=== PATIENT | male | born 1945 | race African-American/Black ===

== ENCOUNTER 2017-09-05 00:42 | Emergency (ER) | payer MEDICARE, OTHER ==
[2017-09-05] MEDS ORDERED: Morphine 4 MG/ML VIAL ONE (01:19)
[2017-09-05 01:29] LABS: #Basophils 0.1 thou/uL (0.0-0.2); #Lymphocytes 1.7 thou/uL (1.20-3.40); #Monocytes 0.8 thou/uL (0.11-0.59); #Neutrophils 6.8 thou/uL (1.40-6.50); %Basophils 0.6 % (0.0-1.0); %Eosinophils 0.5 % (0.0-10.0); %Lymphocytes 18.3 % (21.0-51.0); %Monocytes 8.5 % (0.0-10.0); %Neutrophils 72.1 % (42.0-75.0); Hemoglobin 15.6 g/dL (14.0-18.0); Mean Corpuscular HGB CONC 34.1 g/dL (32.0-36.0); Mean Corpuscular Hemoglobin 32.7 pg (27.0-31.0); Mean Platelet Volume 6.5 fL (7.4-10.4); Platelet Count 196 thou/uL (130-400); RBC Distribution Width 12.3 % (11.5-14.5); Red Blood Cell (RBC) Count 4.76 mill/uL (4.70-6.10); White Blood Cell (WBC) Count 9.4 thou/uL (4.8-10.8)
[2017-09-05 01:40] LABS: Prothrombin Time 13.7 SEC (12.0-14.7)
[2017-09-05 01:49] LABS: ALT (SGPT) 21 U/L (8-55); AST (SGOT) 44 U/L (5-34); Albumin 3.9 g/dL (3.4-4.8); Alkaline Phosphatase 100 U/L (40-150); Anion Gap 14 mmol/L (10-20); BUN (Urea Nitrogen) 7 mg/dL (8.4-25.7); Bilirubin, Total 0.7 mg/dL (0.2-1.2); Calc. Creatinine Clearance 0 mL/min (70-130); Carbon Dioxide 22 mmol/L (23-31); Chloride 103 mmol/L (98-107); Estimated GFR-MDRD 84; Globulin 3.5 g/dL (2.4-3.5); Glucose 132 mg/dL (80-115); Potassium 4.6 mmol/L (3.5-5.1); Protein, Total 7.4 g/dL (5.8-8.1); Sodium 134 mmol/L (136-145)
[2017-09-05 02:16] LABS: Bilirubin Negative (Negative); Blood, Urine Negative (Negative); Clarity CLEAR (Clear); Glucose, Urine (Dipstick) Negative (Negative); Leukocyte Negative (Negative); Nitrite Negative (Negative); Protein, Urine (Dipstick) Negative (Neg-Trace); Specific Gravity, Urine 1.023 (1.002-1.036); pH, Urine 5.5 (5.0-9.0)
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
[2017-09-05] MEDS ORDERED: ISOVUE-370 76%-LOCM 1 ML ONE (15:28)
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
== END 2017-09-05 05:50 | disposition home or self-care (01) ==
LOC: ERS 00:42
DX: S40.012A Contusion of left shoulder, initial encounter (principal); S20.229A Contusion of unspecified back wall of thorax, initial encounter; I10 Essential (primary) hypertension; F17.210 Nicotine dependence, cigarettes, uncomplicated; R60.0 Localized edema; Z79.899 Other long term (current) drug therapy; Z23 Encounter for immunization; Z71.6 Tobacco abuse counseling; V43.62XA Car passenger injured in collision with other type car in traffic accident, initial encounter
CPT/HCPCS: 36415; 70450; 71045; 71260; 72125; 72170; 74177; 80053; 81003; 83605; 85025; 85610; 86850; 86900; 86901; 96361; 96374; 99406; J2270

== ENCOUNTER 2018-07-10 16:55 | Emergency (ER) | payer MEDICARE, OTHER ==
[~2018-07-10 16:55] MED LIST: ISOVUE-370 76%-LOCM 1 ML ONE
[2018-07-10 18:06] LABS: #Basophils 0.1 thou/uL (0.0-0.2); #Eosinphils 0.1 thou/uL (0.0-0.7); #Lymphocytes 1.4 thou/uL (1.20-3.40); #Monocytes 0.7 thou/uL (0.11-0.59); #Neutrophils 6.7 thou/uL (1.40-6.50); %Basophils 0.7 % (0.0-1.0); %Eosinophils 1.6 % (0.0-10.0); %Lymphocytes 15.3 % (21.0-51.0); %Monocytes 8.2 % (0.0-10.0); %Neutrophils 74.2 % (42.0-75.0); Hemoglobin 17.6 g/dL (14.0-18.0); Mean Corpuscular Hemoglobin 32.5 pg (27.0-31.0); Mean Corpuscular Volume 95.5 fL (78.0-98.0); Mean Platelet Volume 7.3 fL (7.4-10.4); Platelet Count 232 thou/uL (130-400); RBC Distribution Width 12.2 % (11.5-14.5); Red Blood Cell (RBC) Count 5.43 mill/uL (4.70-6.10); White Blood Cell (WBC) Count 9.1 thou/uL (4.8-10.8)
[2018-07-10 18:24] LABS: ALT (SGPT) 12 U/L (8-55); AST (SGOT) 13 U/L (5-34); Albumin 4.1 g/dL (3.4-4.8); Alkaline Phosphatase 123 U/L (40-150); Anion Gap 15 mmol/L (10-20); BUN (Urea Nitrogen) 7 mg/dL (8.4-25.7); Bilirubin, Total 0.6 mg/dL (0.2-1.2); Calc. Creatinine Clearance 0 mL/min (70-130); Calcium 9.7 mg/dL (7.8-10.44); Carbon Dioxide 23 mmol/L (23-31); Chloride 96 mmol/L (98-107); Estimated GFR-MDRD Greater than 90; Globulin 3.6 g/dL (2.4-3.5); Glucose 99 mg/dL (83-110); Potassium 3.7 mmol/L (3.5-5.1); Protein, Total 7.7 g/dL (5.8-8.1); Sodium 130 mmol/L (136-145)
[2018-07-10] MEDS ORDERED: Lidocaine Viscous Sol 2% 15 ml UD Cup ONE (18:33)
[2018-07-10] MEDS ORDERED: Mag-Al 1200 mg/1200 mg/30 ML UDCUP ONE (18:33)
[2018-07-10 19:38] LABS: Bilirubin Negative (Negative); Blood, Urine Negative (Negative); Clarity CLEAR (Clear); Glucose, Urine (Dipstick) Negative (Negative); Leukocyte Negative (Negative); Nitrite Negative (Negative); Protein, Urine (Dipstick) Negative (Neg-Trace); Specific Gravity, Urine 1.006 (1.002-1.036); Urobilinogen 0.2 mg/dL (0.2-1.0); pH, Urine 5.5 (5.0-9.0)
--- NOTE | 2018-07-10 20:33 | CT ---
CT ABDOMEN AND PELVIS WITH CONTRAST: HISTORY: Abdominal pain for two weeks. TECHNIQUE: Contrast enhanced CT images of the abdomen and pelvis are obtained after the administration of IV con trast. Oral contrast was not given. This does decrease the sensitivity for detection of pathology. FINDINGS: The lung bases are unremarkable. No evidence of free intraperitoneal air is seen. The liver is unre markable, except for a left hepatic lobe cyst. The gallbladder is unremarkable. The spleen is unrem arkable. The adrenal glands are unremarkable. The left kidney is unremarkable. There is a small, e xophytic, enhancing lesion in the lower pole of the right kidney, diameter measuring approximately 11 mm. This may represent a right renal malignancy, including early renal cell carcinoma. This CT was compared with a previous CT from 09/05/2010. A similar lesion was present and was of similar size. Correlate with follow-up evaluation. Atherosclerotic calcification is seen in the abdominal aorta. No dilated loops of small bowel seen. A normal appendix is seen. A small amount of fecal debris is seen in the colon. The urinary bladder is thickened, concerning for possible cystitis or diffuse bl adder mass. Correlate with clinical evaluation and urological consultation. IMPRESSION: 1. Persistent lower pole right renal enhancing lesion. Malignancy cannot be excluded. 2. Bladder wall thickening. Differential diagnosis includes cystitis, although an infiltrative neop lastic process cannot be excluded. A urological consultation is recommended. POS: [facility]
== END 2018-07-10 21:08 | disposition home or self-care (01) ==
LOC: ERS 16:55
DX: K21.9 Gastro-esophageal reflux disease without esophagitis (principal); I10 Essential (primary) hypertension; F17.210 Nicotine dependence, cigarettes, uncomplicated; Z79.899 Other long term (current) drug therapy
CPT/HCPCS: 36415; 74177; 80053; 81003; 83690; 85025; 93005; Q9966

== ENCOUNTER 2021-06-26 06:03 | Inpatient (IN) | payer MEDICARE ==
[2021-06-26] MEDS ORDERED: Fentanyl 100 MCG/2 ML VIAL ONE ×2 (06:30→08:56)
[2021-06-26 07:00] LABS: ALT (SGPT) 21 U/L (8-55); AST (SGOT) 18 U/L (5-34); Albumin 3.9 g/dL (3.4-4.8); Alkaline Phosphatase 75 U/L (40-110); Anion Gap 18 mmol/L (10-20); BUN (Urea Nitrogen) 20 mg/dL (8.4-25.7); Bilirubin, Total 1.3 mg/dL (0.2-1.2); Calc. Creatinine Clearance 0 mL/min (70-130); Calcium 8.9 mg/dL (7.8-10.44); Carbon Dioxide 22 mmol/L (23-31); Chloride 96 mmol/L (98-107); Globulin 3.4 g/dL (2.4-3.5); Glucose 168 mg/dL (83-110); Lipase 59 U/L (8-78); Potassium 3.3 mmol/L (3.5-5.1); Protein, Total 7.3 g/dL (5.8-8.1); Sodium 133 mmol/L (136-145)
[2021-06-26 07:09] LABS: Blood Culture - Extra Bottle RECEIVED; Blue RECEIVED; Gold RECEIVED; Green RECEIVED; Lavender RECEIVED; SST 8.5mL RECEIVED
[2021-06-26 07:10] LABS: Mean Corpuscular Hemoglobin 32.6 pg (27.0-31.0); Mean Corpuscular Volume 98.7 fL (78.0-98.0); Mean Platelet Volume 7.3 fL (7.4-10.4); Platelet Count 190 thou/uL (130-400); RBC Distribution Width 12.1 % (11.5-14.5)
[2021-06-26 07:29] LABS: Band 7 % (5-11); Eosinophils 1 % (0-10); Lymphocytes 5 % (21-51); MDiff Complete? YES; Monocytes 3 % (0-10); Neutrophil 83 % (42-75); Platelet Morphology Comment Appears Adequate; Polychromasia SLIGHT = 2-3 cells (100X) (0-2/hpf)
[2021-06-26] MEDS ORDERED: Vancomycin 1 GM/200 ML BAG ONE (07:29)
[2021-06-26] MEDS ORDERED: Cefepime 2 GM VIAL ONE (07:29)
[2021-06-26] MEDS ORDERED: Iopamidol 370 76% 100 ML VIAL ONE (08:52)
[2021-06-26 08:58] LABS: Bilirubin Negative (Negative); Blood, Urine 1+ (Negative); Clarity Turbid (Clear); Glucose, Urine (Dipstick) 50 mg/dL (Negative); Ketone, Urine Negative (Negative); Leukocyte Negative Leu/uL (Negative); Nitrite Negative (Negative); Protein, Urine (Dipstick) 50 mg/dL (Neg-Trace); Specific Gravity, Urine 1.043 (1.002-1.036); Squamous Epithelial 0-3 HPF (0-3); pH, Urine 5.5 (5.0-9.0)
[2021-06-26 09:01] LABS: Amphetamine Not Detected (NotDetected); Barbiturates Screen Not Detected (NotDetected); Benzodiazepine Screen Not Detected (NotDetected); Cocaine Metabolite Screen Not Detected (NotDetected); Methadone Not Detected (NotDetected); Methamphetamine Not Detected (NotDetected); Opiate Screen Not Detected (NotDetected); Oxycodone Screen Not Detected (NotDetected); Phencyclidine (PCP) Not Detected (NotDetected); THC/Cannabinoid Screen Not Detected (NotDetected); Tricyclic Screen Not Detected (NotDetected)
[2021-06-26 09:06] LABS: SARS-CoV-2 NAA Rapid Test Not Detected (NotDetected)
[2021-06-26 09:07] LABS: Bacteria/HPF Rare-Few HPF (None Seen)
[2021-06-26] MEDS ORDERED: Rocuronium Bromide 10 MG/ML (10ML VIAL) ONE (09:58)
[2021-06-26] MEDS ORDERED: Calcium Chloride 1 GM/10 ML Abboject SYRINGE ONE (09:58)
[2021-06-26] MEDS ORDERED: Succinylcholine 200 MG/10 ml SYRINGE FS ONE (09:58)
[2021-06-26] MEDS ORDERED: Dexamethasone 20 MG/5 ML VIAL ONE (09:58)
[2021-06-26] MEDS ORDERED: PROPOFOL 200 MG/20 ML VIAL ONE (09:58)
[2021-06-26] MEDS ORDERED: Lidocaine 1% PF 5 ML VIAL ONE (09:58)
[2021-06-26] MEDS ORDERED: Albumin 5% 500 ML ONE (10:12)
[2021-06-26] MEDS ORDERED: Ondansetron PF 4 MG/2 ML Vial IVP PRN (10:21)
[2021-06-26] MEDS ORDERED: hydrALAZINE 20 MG/ML VIAL SLOW IVP PRN (10:21)
[2021-06-26] MEDS ORDERED: Promethazine HCl 25 MG/ML VIAL IM PRN (10:21)
[2021-06-26] MEDS ORDERED: Morphine 4 MG/ML VIAL SLOW IVP PRN ×2 (10:21)
[2021-06-26 10:31] LABS: Lactic Acid 5.5 mmol/L (0.5-2.2)
[2021-06-26] MEDS ORDERED: Potassium Chloride 20 MEQ in Premix Bag 1 BAG IVPB SCH (11:45)
[2021-06-26 12:26] LABS: INR-International Normal Ratio 1.1; PTT 27.3 sec (22.9-36.1); Prothrombin Time 13.8 sec (12.0-14.7)
[2021-06-26] MEDS ORDERED: Piperacillin/Tazobactam 3.375 GM in Sodium Chloride 0.9% 100 ML IVPB SCH ×2 (12:45→13:45)
[2021-06-26] MEDS ORDERED: Pantoprazole 80 MG in Sodium Chloride 0.9% 100 ML IVPB SCH (12:45)
[2021-06-26] MEDS ORDERED: ZOSYN IVPB PRN (12:45)
[2021-06-26] MEDS ORDERED: Propofol 1,000 MG/100 ML VIAL IV PRN (12:46)
[2021-06-26 12:55] LABS: Actual Bicarbonate (HCO3a) 21.6 mEq/L (22-28); CO2 Tension 37.5 mmHg (35.0-45.0); Calcium, Ionized (arterial) 1.16 mmol/L (1.12-1.30); Carboxyhemoglobin (COHb) 0.5 gm% (0.0-3.0); Hemoglobin (Hb) 15.9 g/dL (14.0-18.0); O2 Tension (PaO2), arterial 250.8 mmHg (> 70.0); Potassium - ABG Lab 3.38 mmol/L (3.70-5.30); Puncture Site Arterial Line; pH, Arterial 7.38 (7.35-7.45)
[2021-06-26 12:56] LABS: ALV-art Gradient -48.125 mmHg (0-20)
[2021-06-26] MEDS ORDERED: Potassium Chloride 40 MEQ in Sodium Chloride 0.9% 250 ML 250 ML IVPB SCH (13:00)
[2021-06-26] MEDS ORDERED: Magnesium 2 GM/50 ML(in water) 2 GM in Premix Bag 1 BAG IVPB SCH ×2 (13:00→14:45)
[2021-06-26 13:20] LABS: Anion Gap 14 mmol/L (10-20); BUN (Urea Nitrogen) 19 mg/dL (8.4-25.7); Calc. Creatinine Clearance 0 mL/min (70-130); Calcium 8.3 mg/dL (7.8-10.44); Carbon Dioxide 17 mmol/L (23-31); Chloride 104 mmol/L (98-107); Glucose 122 mg/dL (83-110); Magnesium 1.5 mg/dL (1.6-2.6); Phosphorus 4.3 mg/dL (2.3-4.7); Potassium 3.4 mmol/L (3.5-5.1); Sodium 132 mmol/L (136-145)
[2021-06-26] MEDS: Sodium Chloride 0.9% 1,000 ML IV SCH ×2 (13:26→21:53)
[2021-06-26 13:51] LABS: Lactic Acid 3.1 mmol/L (0.5-2.2)
[2021-06-26] MEDS ORDERED: Dextrose 5% in Water 1,000 ML IV PRN (15:40)
[2021-06-26] MEDS ORDERED: Insulin Regular 300 UNITS/3 ML VIAL SC PRN (15:40)
[2021-06-26] MEDS ORDERED: Dextrose 50% Abboject 50 ML SYRINGE SLOW IVP PRN (15:40)
[2021-06-26] MEDS ORDERED: fentaNYL Citrate/PF 2,000 MCG in Sodium Chloride 0.9% 60 ML IV PRN (16:48)
[2021-06-26] MEDS: Piperacillin/Tazobactam 3.375 GM in Sodium Chloride 0.9% 100 ML IVPB SCH (18:15)
[2021-06-26] MEDS: Famotidine/PF 20 mg/2ml Vial SLOW IVP SCH (21:54)
[2021-06-26] MEDS: Pantoprazole 80 MG, Admixture Fee 1 EACH in Sodium Chloride 0.9% 100 ML IVPB SCH (23:38)
[2021-06-27] MEDS: Piperacillin/Tazobactam 3.375 GM in Sodium Chloride 0.9% 100 ML IVPB SCH ×3 (02:08→17:30)
[2021-06-27 05:07] LABS: Lactic Acid 2.5 mmol/L (0.5-2.2)
[2021-06-27 05:08] LABS: Anion Gap 13 mmol/L (10-20); BUN (Urea Nitrogen) 16 mg/dL (8.4-25.7); Calc. Creatinine Clearance 65 mL/min (70-130); Calcium 8.4 mg/dL (7.8-10.44); Carbon Dioxide 22 mmol/L (23-31); Chloride 101 mmol/L (98-107); Glucose 102 mg/dL (83-110); Phosphorus 3.7 mg/dL (2.3-4.7); Potassium 3.9 mmol/L (3.5-5.1); Sodium 132 mmol/L (136-145)
[2021-06-27] MEDS: Sodium Chloride 0.9% 1,000 ML IV SCH ×3 (05:18→16:09)
[2021-06-27 05:24] LABS: Band 18 % (5-11); Hemoglobin 14.5 g/dL (14.0-18.0); Lymphocytes 5 % (21-51); MDiff Complete? YES; Mean Corpuscular HGB CONC 33.8 g/dL (32.0-36.0); Mean Corpuscular Hemoglobin 33.6 pg (27.0-31.0); Mean Corpuscular Volume 99.3 fL (78.0-98.0); Mean Platelet Volume 7.9 fL (7.4-10.4); Monocytes 16 % (0-10); Neutrophil 60 % (42-75); Platelet Count 131 thou/uL (130-400); Platelet Morphology Comment Appears Adequate; RBC Distribution Width 12.2 % (11.5-14.5); RBC Morphology Normal; Reactive Lymphocytes 1 % (0-10); Red Blood Cell (RBC) Count 4.33 mill/uL (4.70-6.10); White Blood Cell (WBC) Count 11.4 thou/uL (4.8-10.8)
[2021-06-27] MEDS ORDERED: Zolpidem Tartrate 5 MG TAB PO PRN (09:01)
[2021-06-27] MEDS ORDERED: Naloxone HCl 0.4 mg/ml Vial IV PRN (09:01)
[2021-06-27] MEDS ORDERED: diphenhydrAMINE 50 MG/ML VIAL IVP PRN (09:01)
[2021-06-27] MEDS ORDERED: Promethazine HCl 25 MG/ML VIAL IM PRN (09:01)
[2021-06-27] MEDS ORDERED: HYDROmorphone 10 mg/100 ml CADD IVPB PRN (09:01)
[2021-06-27] MEDS ORDERED: Ondansetron PF 4 MG/2 ML Vial IVP PRN (09:01)
[2021-06-27] MEDS ORDERED: diphenhydrAMINE 50 MG/ML VIAL IM PRN (09:01)
[2021-06-27] MEDS ORDERED: diphenhydrAMINE 25 MG CAP PO PRN (09:01)
[2021-06-27] MEDS ORDERED: Communication Order-Pharmacy FS PRN (09:15)
[2021-06-27] MEDS: Pantoprazole 80 MG, Admixture Fee 1 EACH in Sodium Chloride 0.9% 100 ML IVPB SCH ×2 (09:45→20:26)
[2021-06-27] MEDS: Famotidine/PF 20 mg/2ml Vial SLOW IVP SCH ×2 (09:46→20:26)
[2021-06-27] MEDS ORDERED: FLU VACC QS2021-22(65YR UP)/PF 240 MCG/0.7 ML SYRINGE IM ONE (14:45)
[2021-06-27] MEDS ORDERED: Sodium Chloride 0.9% 1,000 ML IV SCH (15:56)
[2021-06-28] MEDS: Piperacillin/Tazobactam 3.375 GM in Sodium Chloride 0.9% 100 ML IVPB SCH ×3 (01:59→17:43)
[2021-06-28] MEDS: Sodium Chloride 0.9% 1,000 ML IV SCH ×2 (02:03→06:30)
[2021-06-28] MEDS: Pantoprazole 80 MG, Admixture Fee 1 EACH in Sodium Chloride 0.9% 100 ML IVPB SCH ×2 (06:30→22:17)
[2021-06-28] MEDS ORDERED: Sodium Chloride 0.9% 1,000 ML IV SCH (09:25)
[2021-06-28] MEDS: Famotidine/PF 20 mg/2ml Vial SLOW IVP SCH ×2 (09:43→20:46)
[2021-06-28] MEDS: NS 0.9% w/ 20 MEQ KCL 1,000 ML/1,000 ML BAG IV SCH ×2 (09:56→20:45)
[2021-06-29] MEDS: Piperacillin/Tazobactam 3.375 GM in Sodium Chloride 0.9% 100 ML IVPB SCH ×3 (01:13→18:34)
[2021-06-29 06:07] LABS: Anion Gap 12 mmol/L (10-20); BUN (Urea Nitrogen) 15 mg/dL (8.4-25.7); Calc. Creatinine Clearance 89 mL/min (70-130); Calcium 8.3 mg/dL (7.8-10.44); Carbon Dioxide 26 mmol/L (23-31); Chloride 98 mmol/L (98-107); Glucose 75 mg/dL (83-110); Magnesium 1.9 mg/dL (1.6-2.6); Phosphorus 2.3 mg/dL (2.3-4.7); Potassium 3.9 mmol/L (3.5-5.1); Sodium 132 mmol/L (136-145)
[2021-06-29 06:35] LABS: #Eosinphils 0.1 thou/uL (0.0-0.7); #Lymphocytes 0.6 thou/uL (1.20-3.40); #Monocytes 0.1 thou/uL (0.11-0.59); #Neutrophils 6.8 thou/uL (1.40-6.50); %Eosinophils 0.7 % (0.0-10.0); %Monocytes 0.8 % (0.0-10.0); %Neutrophils 90.5 % (42.0-75.0); Mean Corpuscular Hemoglobin 32.8 pg (27.0-31.0); Mean Corpuscular Volume 99.4 fL (78.0-98.0); Mean Platelet Volume 7.7 fL (7.4-10.4); Platelet Count 105 thou/uL (130-400); Platelet Morphology Comment Appears Decreased; RBC Distribution Width 12.2 % (11.5-14.5); RBC Morphology Normal; Red Blood Cell (RBC) Count 3.67 mill/uL (4.70-6.10); White Blood Cell (WBC) Count 7.5 thou/uL (4.8-10.8)
[2021-06-29] MEDS: Pantoprazole 80 MG, Admixture Fee 1 EACH in Sodium Chloride 0.9% 100 ML IVPB SCH (08:20)
[2021-06-29] MEDS: Famotidine/PF 20 mg/2ml Vial SLOW IVP SCH ×2 (08:23→19:48)
[2021-06-29] MEDS ORDERED: diphenhydrAMINE 50 MG/ML VIAL IVP PRN (11:57)
[2021-06-29] MEDS ORDERED: HYDROmorphone 0.5 MG/0.5 ML SYRINGE SLOW IVP PRN (11:57)
[2021-06-29] MEDS: HYDROcodone/Acetaminophen 10/325 mg Tablet PO SCH ×3 (14:02→23:56)
[2021-06-29] MEDS: Acetaminophen 325 MG TAB PO SCH ×3 (14:02→23:55)
[2021-06-29] MEDS ORDERED: Enoxaparin Sodium 40 MG/0.4 ML SYRINGE SC SCH (14:30)
[2021-06-29] MEDS: NS 0.9% w/ 20 MEQ KCL 1,000 ML/1,000 ML BAG IV SCH (16:38)
[2021-06-29] MEDS: Pantoprazole 40 MG VIAL IVP SCH (19:46)
[2021-06-30] MEDS: Piperacillin/Tazobactam 3.375 GM in Sodium Chloride 0.9% 100 ML IVPB SCH ×3 (02:07→17:37)
[2021-06-30] MEDS: NS 0.9% w/ 20 MEQ KCL 1,000 ML/1,000 ML BAG IV SCH ×2 (04:06→14:28)
[2021-06-30] MEDS: HYDROcodone/Acetaminophen 10/325 mg Tablet PO SCH ×4 (05:31→17:35)
[2021-06-30] MEDS: Acetaminophen 325 MG TAB PO SCH ×5 (05:31→23:43)
[2021-06-30 06:49] LABS: #Eosinphils 0.1 thou/uL (0.0-0.7); #Lymphocytes 0.7 thou/uL (1.20-3.40); #Monocytes 0.2 thou/uL (0.11-0.59); #Neutrophils 4.5 thou/uL (1.40-6.50); %Basophils 0.5 % (0.0-1.0); %Eosinophils 1.3 % (0.0-10.0); %Lymphocytes 12.6 % (21.0-51.0); %Neutrophils 82.6 % (42.0-75.0); Hemoglobin 13.5 g/dL (14.0-18.0); Mean Corpuscular HGB CONC 34.7 g/dL (32.0-36.0); Mean Corpuscular Hemoglobin 34.1 pg (27.0-31.0); Mean Corpuscular Volume 98.4 fL (78.0-98.0); Mean Platelet Volume 7.9 fL (7.4-10.4); Platelet Count 100 thou/uL (130-400); RBC Distribution Width 12.1 % (11.5-14.5); Red Blood Cell (RBC) Count 3.95 mill/uL (4.70-6.10); White Blood Cell (WBC) Count 5.4 thou/uL (4.8-10.8)
[2021-06-30 07:23] LABS: Anion Gap 10 mmol/L (10-20); BUN (Urea Nitrogen) 9 mg/dL (8.4-25.7); Calc. Creatinine Clearance 124 mL/min (70-130); Calcium 6.7 mg/dL (7.8-10.44); Carbon Dioxide 22 mmol/L (23-31); Chloride 104 mmol/L (98-107); Glucose 73 mg/dL (83-110); Magnesium 1.4 mg/dL (1.6-2.6); Phosphorus 1.7 mg/dL (2.3-4.7); Sodium 133 mmol/L (136-145)
[2021-06-30] MEDS ORDERED: Potassium Phosphate 30 MMOL, Magnesium Sulfate 4 GM in Sodium Chloride 0.9% 250 ML 250 ML IVPB SCH (08:00)
[2021-06-30] MEDS ORDERED: Potassium Phosphate 30 MMOL in Sodium Chloride 0.9% 250 ML 250 ML IVPB SCH (08:00)
[2021-06-30] MEDS: Famotidine/PF 20 mg/2ml Vial SLOW IVP SCH (08:41)
[2021-06-30] MEDS: Enoxaparin Sodium 40 MG/0.4 ML SYRINGE SC SCH (08:42)
[2021-06-30] MEDS: Pantoprazole 40 MG VIAL IVP SCH ×2 (08:43→20:50)
[2021-06-30] MEDS: Famotidine 20 MG TAB PO SCH ×2 (09:32→20:49)
[2021-06-30] MEDS ORDERED: Senokot 8.6 MG TAB PO PRN (14:07)
[2021-06-30] MEDS ORDERED: Polyethylene Glycol 3350 17 GM Packet PO PRN (14:15)
[2021-06-30 17:35] LABS: Anion Gap 19 mmol/L (10-20); BUN (Urea Nitrogen) 11 mg/dL (8.4-25.7); Calc. Creatinine Clearance 102 mL/min (70-130); Calcium 8.7 mg/dL (7.8-10.44); Carbon Dioxide 20 mmol/L (23-31); Chloride 94 mmol/L (98-107); Glucose 74 mg/dL (83-110); Magnesium 2.4 mg/dL (1.6-2.6); Phosphorus 3.8 mg/dL (2.3-4.7); Potassium 4.6 mmol/L (3.5-5.1); Sodium 128 mmol/L (136-145)
[2021-06-30] MEDS ORDERED: Sodium Chloride 1 GM TAB PO SCH (17:45)
[2021-06-30] MEDS ORDERED: Acetaminophen/Codeine 30-300mg Tablet PO PRN (17:46)
[2021-06-30] MEDS: Sodium Chloride 1 GM TAB PO SCH (20:48)
[2021-06-30] MEDS: Acetaminophen/Codeine 30-300mg Tablet PO SCH (23:44)
[2021-07-01] MEDS: Piperacillin/Tazobactam 3.375 GM in Sodium Chloride 0.9% 100 ML IVPB SCH ×2 (01:55→10:07)
[2021-07-01] MEDS: Acetaminophen/Codeine 30-300mg Tablet PO SCH ×4 (05:56→23:57)
[2021-07-01] MEDS: Acetaminophen 325 MG TAB PO SCH ×4 (05:57→23:57)
[2021-07-01] MEDS: Sodium Chloride 1 GM TAB PO SCH ×3 (05:57→22:31)
[2021-07-01 06:46] LABS: Hemoglobin 13.8 g/dL (14.0-18.0); Mean Corpuscular HGB CONC 34.4 g/dL (32.0-36.0); Mean Corpuscular Volume 98.8 fL (78.0-98.0); Mean Platelet Volume 7.6 fL (7.4-10.4); Platelet Count 102 thou/uL (130-400); RBC Distribution Width 12.1 % (11.5-14.5); Red Blood Cell (RBC) Count 4.07 mill/uL (4.70-6.10); White Blood Cell (WBC) Count 5.5 thou/uL (4.8-10.8)
[2021-07-01 07:12] LABS: Anion Gap 15 mmol/L (10-20); BUN (Urea Nitrogen) 12 mg/dL (8.4-25.7); Calc. Creatinine Clearance 99 mL/min (70-130); Calcium 8.7 mg/dL (7.8-10.44); Carbon Dioxide 25 mmol/L (23-31); Chloride 93 mmol/L (98-107); Glucose 75 mg/dL (83-110); Magnesium 2.1 mg/dL (1.6-2.6); Phosphorus 2.9 mg/dL (2.3-4.7); Potassium 4.3 mmol/L (3.5-5.1); Sodium 129 mmol/L (136-145)
[2021-07-01 08:11] LABS: Band 3 % (5-11); Eosinophils 1 % (0-10); Lymphocytes 12 % (21-51); MDiff Complete? YES; Monocytes 6 % (0-10); Neutrophil 77 % (42-75); Platelet Morphology Comment Appears Decreased; RBC Morphology Normal; Reactive Lymphocytes 1 % (0-10)
[2021-07-01] MEDS ORDERED: Sodium Phosphate 30 MMOL in Sodium Chloride 0.9% 250 ML 250 ML IVPB SCH (09:00)
[2021-07-01] MEDS: Amlodipine 10 MG TAB PO SCH (10:08)
[2021-07-01] MEDS: Enoxaparin Sodium 40 MG/0.4 ML SYRINGE SC SCH (10:08)
[2021-07-01] MEDS: Pantoprazole 40 MG VIAL IVP SCH ×3 (10:08→19:59)
[2021-07-01 10:26] LABS: Actual Bicarbonate (HCO3a) 16.5 mEq/L (22-28); Analyzer IN Cardio OR; Base Excess (BEa) -8.1 mEq/L (-2.0 to +3.0); CO2 Tension 31.8 mmHg (35.0-45.0); Calcium, Ionized (arterial) 1.11 mmol/L (1.12-1.30); Carboxyhemoglobin (COHb) 0.2 gm% (0.0-3.0); Hemoglobin (Hb) 14.5 g/dL (14.0-18.0); Potassium - ABG Lab 3.16 mmol/L (3.70-5.30); pH, Arterial 7.33 (7.35-7.45)
[2021-07-01 10:27] LABS: O2 Tension (PaO2), arterial 533.6 mmHg (> 70.0); Puncture Site Arterial Line
[2021-07-01] MEDS: Famotidine 20 MG TAB PO SCH (10:37)
[2021-07-01] MEDS: metroNIDAZOLE 500 MG TAB PO SCH ×3 (13:43→19:58)
[2021-07-01] MEDS: Bismuth Subs 17.5 mg/mL Susp PO SCH ×3 (13:44→22:31)
[2021-07-01] MEDS: Doxycycline 100 MG CAP PO SCH (19:58)
[2021-07-02] MEDS: Acetaminophen/Codeine 30-300mg Tablet PO SCH ×3 (04:57→17:17)
[2021-07-02] MEDS: Acetaminophen 325 MG TAB PO SCH ×3 (04:57→17:18)
[2021-07-02] MEDS: Sodium Chloride 1 GM TAB PO SCH ×3 (04:58→20:25)
[2021-07-02 05:39] LABS: Hemoglobin 13.2 g/dL (14.0-18.0); Mean Corpuscular HGB CONC 34.3 g/dL (32.0-36.0); Mean Corpuscular Hemoglobin 33.8 pg (27.0-31.0); Mean Corpuscular Volume 98.5 fL (78.0-98.0); Mean Platelet Volume 7.5 fL (7.4-10.4); Platelet Count 88 thou/uL (130-400); Red Blood Cell (RBC) Count 3.91 mill/uL (4.70-6.10); White Blood Cell (WBC) Count 4.8 thou/uL (4.8-10.8)
[2021-07-02 05:51] LABS: Anion Gap 11 mmol/L (10-20); BUN (Urea Nitrogen) 12 mg/dL (8.4-25.7); Calc. Creatinine Clearance 99 mL/min (70-130); Calcium 8.8 mg/dL (7.8-10.44); Carbon Dioxide 29 mmol/L (23-31); Chloride 96 mmol/L (98-107); Glucose 88 mg/dL (83-110); Phosphorus 3.1 mg/dL (2.3-4.7); Sodium 132 mmol/L (136-145)
[2021-07-02 06:23] LABS: Eosinophils 1 % (0-10); Lymphocytes 19 % (21-51); MDiff Complete? YES; Monocytes 10 % (0-10); Neutrophil 69 % (42-75); Platelet Morphology Comment Appears Decreased; RBC Morphology Normal
[2021-07-02] MEDS ORDERED: PHOS-NAK 1 PKT PACK PO SCH (08:00)
[2021-07-02] MEDS ORDERED: Pantoprazole 40 MG VIAL IVP SCH (09:00)
[2021-07-02] MEDS: Doxycycline 100 MG CAP PO SCH ×2 (09:44→20:24)
[2021-07-02] MEDS: Senokot S 8.6-50 MG TAB PO SCH ×2 (09:44→20:25)
[2021-07-02] MEDS: Polyethylene Glycol 3350 17 GM Packet PO SCH (09:45)
[2021-07-02] MEDS: metroNIDAZOLE 500 MG TAB PO SCH ×4 (09:45→20:25)
[2021-07-02] MEDS: Amlodipine 10 MG TAB PO SCH (09:45)
[2021-07-02] MEDS: Enoxaparin Sodium 40 MG/0.4 ML SYRINGE SC SCH (10:06)
[2021-07-02] MEDS: Bismuth Subs 17.5 mg/mL Susp PO SCH ×4 (13:18→20:21)
[2021-07-02 13:56] VITALS: BMI 26.7
[2021-07-02 22:09] LABS: SARS-CoV-2 PCR by NAA Not Detected (NotDetected)
[2021-07-03] MEDS: Acetaminophen/Codeine 30-300mg Tablet PO SCH ×3 (00:39→14:06)
[2021-07-03] MEDS: Acetaminophen 325 MG TAB PO SCH ×3 (00:40→14:06)
[2021-07-03] MEDS: Sodium Chloride 1 GM TAB PO SCH ×2 (04:53→14:06)
[2021-07-03 05:16] LABS: #Eosinphils 0.1 thou/uL (0.0-0.7); #Lymphocytes 0.7 thou/uL (1.20-3.40); #Monocytes 0.2 thou/uL (0.11-0.59); #Neutrophils 4.1 thou/uL (1.40-6.50); %Basophils 0.5 % (0.0-1.0); %Eosinophils 2.2 % (0.0-10.0); %Lymphocytes 12.9 % (21.0-51.0); %Monocytes 4.3 % (0.0-10.0); %Neutrophils 80.1 % (42.0-75.0); Hemoglobin 12.8 g/dL (14.0-18.0); Mean Corpuscular HGB CONC 33.9 g/dL (32.0-36.0); Mean Corpuscular Hemoglobin 33.7 pg (27.0-31.0); Mean Corpuscular Volume 99.6 fL (78.0-98.0); Mean Platelet Volume 7.3 fL (7.4-10.4); Platelet Count 71 thou/uL (130-400); RBC Distribution Width 12.2 % (11.5-14.5); Red Blood Cell (RBC) Count 3.79 mill/uL (4.70-6.10); White Blood Cell (WBC) Count 5.1 thou/uL (4.8-10.8)
[2021-07-03 05:28] LABS: Anion Gap 9 mmol/L (10-20); BUN (Urea Nitrogen) 19 mg/dL (8.4-25.7); Calc. Creatinine Clearance 78 mL/min (70-130); Calcium 8.9 mg/dL (7.8-10.44); Carbon Dioxide 30 mmol/L (23-31); Chloride 96 mmol/L (98-107); Glucose 108 mg/dL (83-110); Magnesium 1.8 mg/dL (1.6-2.6); Potassium 3.9 mmol/L (3.5-5.1); Sodium 131 mmol/L (136-145)
[2021-07-03] MEDS ORDERED: Magnesium 2 GM/50 ML(in water) 2 GM in Premix Bag 1 BAG IVPB SCH (08:00)
[2021-07-03] MEDS ORDERED: PHOS-NAK 1 PKT PACK PO SCH (08:00)
[2021-07-03] MEDS: Senokot S 8.6-50 MG TAB PO SCH (08:40)
[2021-07-03] MEDS: Enoxaparin Sodium 40 MG/0.4 ML SYRINGE SC SCH ×2 (08:40→08:43)
[2021-07-03] MEDS: Amlodipine 10 MG TAB PO SCH (08:41)
[2021-07-03] MEDS: Bismuth Subs 17.5 mg/mL Susp PO SCH ×2 (08:41→14:07)
[2021-07-03] MEDS: Polyethylene Glycol 3350 17 GM Packet PO SCH (08:41)
[2021-07-03] MEDS: metroNIDAZOLE 500 MG TAB PO SCH ×2 (08:41→14:06)
[2021-07-03] MEDS: Doxycycline 100 MG CAP PO SCH (09:03)
[2021-07-03 15:39] VITALS: BP 115/71; TEMP 98.9
== END 2021-07-03 15:59 | DRG 853 ==
LOC: ERS 06:03 → SDC/OP 09:43 → CCU 12:34 → SURG B 06-27 12:39
PROVIDERS: ADMIT Surgery; ATTEND Surgery
PROC: 0DU607Z Supplement Stomach with Autologous Tissue Substitute, Open Approach (ICD-10-PCS; principal; 2021-06-26)
PROC: 02HV33Z Insertion of Infusion Device into Superior Vena Cava, Percutaneous Approach (ICD-10-PCS; 2021-06-26)
DX: A41.9 Sepsis, unspecified organism (principal); K25.5 Chronic or unspecified gastric ulcer with perforation; K65.9 Peritonitis, unspecified; K63.1 Perforation of intestine (nontraumatic); E87.2 Acidosis; N17.9 Acute kidney failure, unspecified; E87.1 Hypo-osmolality and hyponatremia; R65.20 Severe sepsis without septic shock; Z20.822 Contact with and (suspected) exposure to COVID-19; I10 Essential (primary) hypertension; E83.42 Hypomagnesemia; B96.81 Helicobacter pylori [H. pylori] as the cause of diseases classified elsewhere; E87.6 Hypokalemia; K21.9 Gastro-esophageal reflux disease without esophagitis; F17.210 Nicotine dependence, cigarettes, uncomplicated; Z90.79 Acquired absence of other genital organ(s); Z79.82 Long term (current) use of aspirin; Z79.899 Other long term (current) drug therapy
CPT/HCPCS: 36415; 36416; 51702; 71045; 74018; 74177; 74246; 80048; 80053; 80306; 81003; 81015; 82040; 82533; 82805; 83036; 83605; 83690; 83735; 84100; 85025; 85610; 85730; 86677; 86850; 86900; 86901; 87040; 93005; 94002; 94003; 94640; 96365; 96367; 96375; 96376; C1751; C9113; J0692; J1100; J1650; J2270; J2370; J2543; J2704; J2920; J3010; J3370; J3475; J3480; J3490; J7050; J7070; J7620; P9045; Q9967; S0028; U0002; U0003; U0005

== ENCOUNTER 2022-06-30 11:47 | Outpatient (CLI) | payer MEDICARE ==
[2022-06-30 13:12] LABS: #Basophils 0.1 10x3/uL (0.0-0.2); #Eosinphils 0.2 10x3/uL (0.0-0.5); #Monocytes 0.5 10x3/uL (0.0-1.1); #Neutrophils 3.4 10x3/uL (1.5-8.4); %Basophils 1.5 % (0.0-2.0); %Eosinophils 3.8 % (0.0-6.0); %Lymphocytes 23.2 % (18.0-47.0); %Monocytes 9.9 % (0.0-10.0); %Neutrophils 61.2 % (40.0-75.0); Hemoglobin 12.6 g/dL (13.5-17.5); Mean Corpuscular HGB CONC 34.1 g/dL (32.0-36.0); Mean Corpuscular Hemoglobin 31.3 pg (27.0-33.0); Mean Platelet Volume 10.5 fl (7.4-10.4); Platelet Count 212 10x3/uL (150-450); RBC Distribution Width 13.5 % (11.5-14.5); Red Blood Cell (RBC) Count 4.02 10x6/uL (4.32-5.72); White Blood Cell (WBC) Count 5.5 10x3/uL (3.5-10.5)
[2022-06-30 13:43] LABS: ALT (SGPT) 11 U/L (8-55); AST (SGOT) 15 U/L (5-34); Alkaline Phosphatase 90 U/L (40-110); Anion Gap 13 mmol/L (10-20); BUN (Urea Nitrogen) 11 mg/dL (8.4-25.7); Bilirubin, Total 0.7 mg/dL (0.2-1.2); Calc. Creatinine Clearance 0 mL/min (70-130); Carbon Dioxide 25 mmol/L (23-31); Chloride 105 mmol/L (98-107); Estimated GFR 64; Globulin 3.5 g/dL (2.4-3.5); Glucose 88 mg/dL (83-110); Protein, Total 7.5 g/dL (5.8-8.1); Sodium 138 mmol/L (136-145)
[2022-06-30 13:48] LABS: Potassium 4.7 mmol/L (3.5-5.1)
== END 2022-06-30 11:48 | disposition home or self-care (01) ==
LOC: LABBT 11:47
PROVIDERS: ATTEND Surgery
DX: Z01.812 Encounter for preprocedural laboratory examination (principal); K40.90 Unilateral inguinal hernia, without obstruction or gangrene, not specified as recurrent
CPT/HCPCS: 80053; 85025

== ENCOUNTER 2022-07-03 09:29 | Day surgery (SDC) | payer MEDICARE ==
[2022-07-02 09:28] VITALS: BMI 26.0
[2022-07-03] MEDS ORDERED: CEFAZOLIN 2 GM VIAL ONE (10:48)
[2022-07-03] MEDS ORDERED: Sodium Chloride 0.9% 100 ML ONE (10:48)
[2022-07-03] MEDS ORDERED: fentaNYL PF 100 MCG/2 ML SYRINGE ONE (11:11)
[2022-07-03] MEDS ORDERED: PROPOFOL 200 MG/20 ML VIAL ONE (11:16)
[2022-07-03] MEDS ORDERED: Lidocaine 1% PF 5 ML VIAL ONE (11:16)
[2022-07-03] MEDS ORDERED: Bupivacaine/Epinephrine 0.25% 30 ML VIAL ONE (12:40)
== END 2022-07-03 13:41 | disposition home or self-care (01) ==
LOC: SDC 09:29
PROVIDERS: ATTEND Surgery
PROC: 0YU50JZ Supplement Right Inguinal Region with Synthetic Substitute, Open Approach (ICD-10-PCS; principal; 2022-07-03)
DX: K40.90 Unilateral inguinal hernia, without obstruction or gangrene, not specified as recurrent (principal); I10 Essential (primary) hypertension; K21.9 Gastro-esophageal reflux disease without esophagitis; F17.210 Nicotine dependence, cigarettes, uncomplicated; K59.00 Constipation, unspecified; Z79.82 Long term (current) use of aspirin; Z79.899 Other long term (current) drug therapy
CPT/HCPCS: 49505; C1781; J2704; J3490